=== PATIENT | female | born 1990 | race Caucasian/White ===

== ENCOUNTER 2023-05-27 00:22 | Inpatient (IN) | payer MEDICAID ==
[~2023-05-27] VITALS: Ht 165.1 cm; Wt 92.5 kg
[2023-05-27] MEDS ORDERED: PENICILLIN G POTASSIUM 2.5 MMU in DEXTROSE 5% WATER 50 ML IV SCH (00:45)
[2023-05-27] MEDS ORDERED: METHYLERGONOVINE MALEATE 0.2 MG/ML IM PRN ×2 (00:45→01:15)
[2023-05-27] MEDS ORDERED: OXYTOCIN 30 UNITS/500ML NS PMX 500 ML IV SCH ×2 (00:45→01:15)
[2023-05-27] MEDS ORDERED: CARBOPROST TROMETHAMINE 250 MCG/ML AMPUL IM PRN (00:45)
[2023-05-27] MEDS ORDERED: PENICILLIN G POTASSIUM 5 MMU in DEXT 5% WATER 100 ML IV NR (00:45)
[2023-05-27] MEDS ORDERED: LIDOCAINE HCL 1% 20ML VIAL (Pyxis) INJ INFIL SCH (00:45)
[2023-05-27] MEDS ORDERED: MISOPROSTOL 100MCG TABLET VG SCH (00:45)
[2023-05-27] MEDS ORDERED: RHO(D) IMMUNE GLOBULIN 300 MCG/SYR IM ONE (00:45)
[2023-05-27] MEDS ORDERED: LACTATED RINGERS 1,000 ML IV SCH (00:45)
[2023-05-27] MEDS ORDERED: CALC-1042 PO (00:55)
[2023-05-27] MEDS ORDERED: CALICUM (00:55)
[2023-05-27] MEDS ORDERED: METH-371 PO (00:55)
[2023-05-27] MEDS ORDERED: PNV91TAB6 PO (00:55)
[2023-05-27] MEDS ORDERED: PTU (01:19)
[2023-05-27] MEDS: IBUPROFEN 800MG TABLET PO PRN ×3 (02:12→18:14)
[2023-05-27 04:00] VITALS: BP 108/50; PULSE 74; RESP 16; TEMP 98.8; O2SAT 99
[2023-05-27 04:31] LABS: BASOPHILS % 0.3 % (0.0-2.0); EOSINOPHILS % 0.3 % (0.0-5.0); HEMOGLOBIN. 12.9 g/dL (12.0-16.0); LYMPHOCYTES % 30.1 % (20.0-50.0); MEAN CORPUSCULAR HEMOGLOBIN 30.2 pg (28.0-32.0); MEAN CORPUSCULAR HGB CONC 34.9 g/dL (31.0-37.0); MEAN CORPUSCULAR VOLUME 86.5 fL (81.0-99.0); MEAN PLATELET VOLUME 8.2 fl (7.4-10.4); MONOCYTES % 6.7 % (2.0-8.0); NEUTROPHILS % 62.6 % (40.0-76.0); PLATELET 255 x1000/uL (130-400); RED BLOOD CELL COUNT 4.28 mill/uL (4.2-5.4); RED CELL DISTRIBUTION WIDTH 13.8 % (11.6-14.6)
[2023-05-27 04:45] LABS: INR 0.9; PARTIAL THROMBOPLASTIN TIME 26.2 sec (23.4-31.0); PROTHROMBIN TIME 9.8 sec (9.6-11.0)
[2023-05-27 04:49] LABS: *AMPHETAMINES SCREEN URINE NEGATIVE (NEGATIVE); *BARBITURATES SCREEN URINE NEGATIVE (NEGATIVE); *BENZODIAZEPINES SCREEN URINE NEGATIVE (NEGATIVE); *COCAINE SCREEN URINE NEGATIVE (NEGATIVE); CANNABINOID URINE SCREEN NEGATIVE (NEGATIVE); ECSTASY MDMA SCREEN URINE NEGATIVE (NEGATIVE); METHADONE URINE SCREEN NEGATIVE (NEGATIVE); OPIATES URINE SCREEN NEGATIVE (NEGATIVE); PHENCYCLIDINE URINE SCREEN NEGATIVE (NEGATIVE)
[2023-05-27 05:08] LABS: HEPATITIS B SURFACE ANTIGEN NEGATIVE; RUBELLA IGG 39.8 IU/mL (4.99-10)
[2023-05-27 05:59] LABS: RAPID HIV SCREEN NEGATIVE (NEGATIVE)
[2023-05-27] MEDS ORDERED: PROPYLTHIOURACIL 50MG TABLET PO SCH (09:00)
[2023-05-27 09:40] LABS: CLARITY URINE TURBID (CLEAR); COLOR URINE RED (YELLOW); GLUCOSE URINE NEGATIVE (NEGATIVE); KETONES URINE TRACE (NEGATIVE); LEUKOCYTE ESTERASE URINE 1+ (NEGATIVE); NITRITE URINE NEGATIVE (NEGATIVE); OCCULT BLOOD URINE 3+ (NEGATIVE); PROTEIN URINE 2+ (NEGATIVE); SPECIFIC GRAVITY URINE 1.018 (1.005-1.030); UROBILINOGEN URINE 0.2 E.U./dL (0.2-1.0)
[2023-05-27 10:00] VITALS: BP 101/60; PULSE 88; RESP 18; TEMP 98.5; O2SAT 99
[2023-05-27 10:20] LABS: RBC URINE TNTC /hpf (0-2)
[2023-05-27 10:22] LABS: BACTERIA URINE NONE SEEN; SQUAMOUS EPITHELIAL CELL URINE FEW /lpf (RARE/1+); YEAST URINE NONE SEEN
[2023-05-27] MEDS: METHIMAZOLE 5MG TABLET PO SCH (10:43)
[2023-05-27 16:30] VITALS: BP 110/64; PULSE 84; RESP 18; TEMP 98.7
[2023-05-27 20:00] VITALS: BP 98/55; PULSE 72; RESP 18; TEMP 98.4; O2SAT 96
[2023-05-28] MEDS: IBUPROFEN 800MG TABLET PO PRN ×3 (01:13→17:33)
[2023-05-28 04:00] VITALS: BP 97/59; PULSE 65; RESP 18; TEMP 98.4
[2023-05-28 07:27] LABS: BASOPHILS % 0.4 % (0.0-2.0); EOSINOPHILS % 1.1 % (0.0-5.0); HEMATOCRIT. 31.8 % (36.0-48.0); HEMOGLOBIN. 10.9 g/dL (12.0-16.0); LYMPHOCYTES % 35.4 % (20.0-50.0); MEAN CORPUSCULAR HEMOGLOBIN 29.8 pg (28.0-32.0); MEAN CORPUSCULAR HGB CONC 34.4 g/dL (31.0-37.0); MEAN CORPUSCULAR VOLUME 86.7 fL (81.0-99.0); MEAN PLATELET VOLUME 8.1 fl (7.4-10.4); MONOCYTES % 6.2 % (2.0-8.0); NEUTROPHILS % 56.9 % (40.0-76.0); PLATELET 206 x1000/uL (130-400); RED BLOOD CELL COUNT 3.67 mill/uL (4.2-5.4); RED CELL DISTRIBUTION WIDTH 13.8 % (11.6-14.6); WHITE BLOOD COUNT 9.6 x1000/uL (4.5-11.0)
[2023-05-28] MEDS: METHIMAZOLE 5MG TABLET PO SCH (07:57)
[2023-05-28 08:00] VITALS: BP 107/73; PULSE 73; RESP 18; TEMP 97.7
[2023-05-28 08:15] VITALS: O2SAT 96
[2023-05-28 16:12] VITALS: BP 96/55; PULSE 84; RESP 18; TEMP 98.2
[2023-05-28 19:30] VITALS: BP 109/69; PULSE 88; RESP 18; TEMP 98.4; O2SAT 97
[2023-05-29 03:30] VITALS: BP 103/63; PULSE 86; RESP 18; TEMP 98
[2023-05-29] MEDS: IBUPROFEN 800MG TABLET PO PRN ×2 (03:35→09:18)
[2023-05-29 07:31] VITALS: BP 112/69; PULSE 79; RESP 18; TEMP 98.1
[2023-05-29 07:32] VITALS: O2SAT 97
[2023-05-29] MEDS: METHIMAZOLE 5MG TABLET PO SCH (09:18)
== END 2023-05-29 12:20 | disposition home or self-care (01) | DRG 560 ==
LOC: 8 EST LDRP 00:22 → OBSVTOIN 00:22 → 8EST 03:25
PROVIDERS: ADMIT Obstetrics & Gynecology; ATTEND Obstetrics & Gynecology
PROC: 10E0XZZ Delivery of Products of Conception, External Approach (ICD-10-PCS; principal; 2023-05-27)
PROC: 0KQM0ZZ Repair Perineum Muscle, Open Approach (ICD-10-PCS; 2023-05-27)
DX: O69.81X0 Labor and delivery complicated by cord around neck, without compression, not applicable or unspecified (principal); Z37.0 Single live birth; E05.90 Thyrotoxicosis, unspecified without thyrotoxic crisis or storm; O99.284 Endocrine, nutritional and metabolic diseases complicating childbirth; O70.1 Second degree perineal laceration during delivery; O99.214 Obesity complicating childbirth; Z3A.38 38 weeks gestation of pregnancy
CPT/HCPCS: 36415; 80305; 81003; 85025; 86592; 86703; 86762; 86850; 86900; 87340; 99281; G0378; J2540; J3490; J7060; J7120; J2590